=== PATIENT | female | born 1985 | race Caucasian/White ===

== ENCOUNTER → 2018-01-21 | Outpatient (CLI) | payer OTHER ==
[~2018-01-21] MED LIST: HYDR25TA6 PO; LISI-170 PO; MULT-212 PO; OMEP20TA62 PO
== END ==
LOC: STAR 08:44
PROVIDERS: ATTEND Obstetrics & Gynecology Female Pelvic Medicine and Reconstructive Surgery
DX: Z02.9 Encounter for administrative examinations, unspecified (principal)

== ENCOUNTER 2018-01-26 09:20 | Day surgery (SDC) | payer OTHER ==
[~2018-01-26] VITALS: Ht 177.8 cm; Wt 123.0 kg
[~2018-01-26 09:20] MED LIST changes: +BUPIVACAINE/PF 0.25% ONE; +EPINEPHRINE 1 MG/ML, 1ML ONE; +NEOMY/POLYMYXIN B GU IRR. 1 ML IRRIG ONE; +SUGAMMADEX 200 MG/2 ML IVPush ONE
[2018-01-26] MEDS ORDERED: LACTATED RINGERS 1,000 ML IV SCH (09:50)
[2018-01-26] MEDS ORDERED: DEXAMETHASONE 4 MG/ML, 1ML ONE (11:31)
[2018-01-26] MEDS ORDERED: SUCCINYLCHOLINE 20 MG/ML, 10ML ONE (11:31)
[2018-01-26] MEDS ORDERED: MIDAZOLAM 1 MG/ML, 2ML ONE (11:31)
[2018-01-26] MEDS ORDERED: NEOSTIGMINE 1 MG/ML, 10ML ONE (11:31)
[2018-01-26] MEDS ORDERED: PROPOFOL 10 MG/ML, 20ML ONE ×3 (11:31→11:52)
[2018-01-26] MEDS ORDERED: CEFAZOLIN 1,000 MG ONE (11:31)
[2018-01-26] MEDS ORDERED: ONDANSETRON 2MG/ML, 2ML ONE ×2 (11:31→11:52)
[2018-01-26] MEDS ORDERED: ROCURONIUM 10 MG/ML,10ML ONE (11:31)
[2018-01-26] MEDS ORDERED: GLYCOPYRROLATE 0.2MG/1ML, 5ML ONE (11:31)
[2018-01-26] MEDS ORDERED: FENTANYL PF 100 MCG/2ML ONE ×2 (11:32→13:00)
[2018-01-26] MEDS ORDERED: HYDROcodone/APAP 7.5-325MG/15ML UDC PO PRN (12:00)
[2018-01-26] MEDS ORDERED: KETOROLAC 30 MG/1 ML IV PRN ×2 (12:00)
[2018-01-26] MEDS ORDERED: ACETAMINOPHEN 325 MG TABLET PO PRN (12:00)
[2018-01-26] MEDS ORDERED: HYDROmorphone 1 MG/ML, 1ML IV PRN (12:00)
[2018-01-26] MEDS ORDERED: MEPERIDINE/PF 25MG/0.5ML IVPush PRN (12:00)
[2018-01-26] MEDS ORDERED: OXYcodone 5 MG/5 ML ORAL.SOL UDC ONE (13:00)
[2018-01-26] MEDS: FENTANYL PF 100 MCG/2ML IV PRN ×2 (13:00→13:20)
[2018-01-26] MEDS ORDERED: KETOROLAC 30 MG/1 ML ONE (13:00)
[2018-01-26] MEDS ORDERED: ACETAMINOPHEN 650 MG/20.3 ML UDC ONE (13:01)
[2018-01-26] MEDS: OXYcodone 5 MG/5 ML ORAL.SOL UDC PO PRN ×2 (13:20→21:40)
[2018-01-26] MEDS ORDERED: morphine SULFATE 10 MG/ML, 1ML ONE (13:30)
[2018-01-26] MEDS: morphine SULFATE 10 MG/ML, 1ML IV PRN ×2 (13:35→14:00)
[2018-01-26] MEDS ORDERED: GABAPENTIN 300 MG CAPSULE ONE (14:39)
[2018-01-26] MEDS ORDERED: hydrALAzine 20 MG/ML, 1ML ONE (17:44)
[2018-01-26] MEDS ORDERED: hydrALAzine 20 MG/ML, 1ML IV ONE (18:00)
[2018-01-26] MEDS ORDERED: HYDROmorphone 2 MG/ML, 1ML ONE (19:16)
== END 2018-01-26 22:00 ==
LOC: OUT 09:20
PROVIDERS: ATTEND Obstetrics & Gynecology Female Pelvic Medicine and Reconstructive Surgery
DX: N87.9 Dysplasia of cervix uteri, unspecified (principal); N92.0 Excessive and frequent menstruation with regular cycle; I10 Essential (primary) hypertension; F17.210 Nicotine dependence, cigarettes, uncomplicated; Z98.890 Other specified postprocedural states; Z98.84 Bariatric surgery status; Z90.710 Acquired absence of both cervix and uterus; Z87.19 Personal history of other diseases of the digestive system
CPT/HCPCS: 36415; 58571; 84703; 88307; J0171; J0690; J1100; J1885; J2250; J2270; J2405; J2704; J3010; J3490; J7120; J2710; J0330